=== PATIENT | female | born 1965 | race Caucasian/White ===

== ENCOUNTER 2018-01-25 11:31 | Day surgery (SDC) | payer OTHER ==
[2018-01-24 15:05] VITALS: BMI 28.3
--- NOTE | 2018-01-25 13:15 | PROC ---
Endoscopy Procedure Endoscopy procedure completed. Please see scanned procedure report.
[2018-01-25 13:22] VITALS: TEMP 97.8
[2018-01-25 14:20] VITALS: BP 150/75; PULSE 56
--- NOTE | 2018-01-26 11:39 | PATH ---
Surgical Pathology Report Patient Name: SERGO BENOIT [facility]. Rec. #: [id number] /Age/Gender: 1965 (Age: 52) / F Account: [id number] Location: [facility]-ENDOSCOPY Taken: 01/25/2018 Received: 01/25/2018 Reported: 01/26/2018 Physicians: Sandeep Kaur M.D. Specimen(s) Received A: BX 2ND PORTION DUODENUM B: BX ANTRUM AND BODY Clinical History Reflux, colon screening, GERD Postoperative diagnosis: Gastritis, normal colon Final Diagnosis A. DUODENUM, SECOND PORTION, BIOPSY: DUODENAL MUCOSA WITH MILD CHRONIC DUODENITIS AND PRESERVED VILLOUS ARCHITECTURE. B. STOMACH, ANTRUM, BIOPSY: GASTRIC ANTRAL MUCOSA WITH MODERATE CHRONIC FOCAL ACTIVE GASTRITIS. IMMUNOHISTOCHEMICAL STAIN FOR H. PYLORI IS POSITIVE (FEW). Electronically Signed Briseyda Arvizu M.D. Gross Description A. Received in formalin, labeled "biopsy duodenum second portion" are 3 nolasco, irregular portions of soft tissue ranging from 0.2-0.3 cm. in greatest dimension. The specimens are submitted in toto in one cassette. B. Received in formalin, labeled "biopsy antrum" are 2 nolasco, irregular portions of soft tissue measuring 0.3 and 0.8 cm. in greatest dimension. The specimens are submitted in toto in one cassette. 01/25/2018 saudi01/25/2018
== END 2018-01-25 14:20 | disposition home or self-care (01) ==
LOC: JASU-ENDO 11:31
PROVIDERS: ATTEND Internal Medicine Gastroenterology
PROC: 0DB98ZX Excision of Duodenum, Via Natural or Artificial Opening Endoscopic, Diagnostic (ICD-10-PCS; 2018-01-25)
PROC: 0DB68ZX Excision of Stomach, Via Natural or Artificial Opening Endoscopic, Diagnostic (ICD-10-PCS; 2018-01-25)
PROC: 0DJD8ZZ Inspection of Lower Intestinal Tract, Via Natural or Artificial Opening Endoscopic (ICD-10-PCS; principal; 2018-01-25 12:00)
DX: Z12.11 Encounter for screening for malignant neoplasm of colon (principal); K64.4 Residual hemorrhoidal skin tags; K29.70 Gastritis, unspecified, without bleeding; R10.13 Epigastric pain
CPT/HCPCS: 43239; G0121; 82962; 88305-TC; 88342-TC